=== PATIENT | male | born 1990 | race Caucasian/White ===

== ENCOUNTER 2016-07-19 09:59 | Emergency (ER) | payer OTHER ==
[~2016-07-19] VITALS: Ht 170.2 cm; Wt 61.2 kg
[~2016-07-19 09:59] MED LIST: CIPROFLOXACIN500 M1 PO; FLAGYL500 MG PO; NORCO 5-325 TA1 EACH PO
[2016-07-19] MEDS ORDERED: ZOFRAN ODT4 MG DISSOLVE (10:26)
[2016-07-19] MEDS ORDERED: OXYCODONE PO (10:27)
[2016-07-19 15:07] VITALS: BP 130/72
== END 2016-07-19 15:08 | disposition home or self-care (01) ==
LOC: ER 09:59
DX: H53.8 Other visual disturbances (principal); S02.92XG Unspecified fracture of facial bones, subsequent encounter for fracture with delayed healing; W10.8XXD Fall (on) (from) other stairs and steps, subsequent encounter; Z98.890 Other specified postprocedural states; Z85.46 Personal history of malignant neoplasm of prostate; Z85.47 Personal history of malignant neoplasm of testis; Z88.0 Allergy status to penicillin; Z88.1 Allergy status to other antibiotic agents; F17.210 Nicotine dependence, cigarettes, uncomplicated